=== PATIENT | female | born 1970 | race Two or more races ===

== ENCOUNTER 2020-03-30 08:57 | Emergency (ER) | payer OTHER ==
[~2020-03-30] VITALS: Ht 165.1 cm; Wt 93.0 kg
[2020-03-30] MEDS ORDERED: ZITHROMAX500 MG PO (11:39)
== END 2020-03-30 13:17 | disposition home or self-care (01) ==
LOC: ER 08:57
DX: B34.9 Viral infection, unspecified (principal); B96.0 Mycoplasma pneumoniae [M. pneumoniae] as the cause of diseases classified elsewhere; Z03.818 Encounter for observation for suspected exposure to other biological agents ruled out

== ENCOUNTER 2020-05-26 19:08 | Emergency (ER) | payer OTHER ==
[~2020-05-26] VITALS: Ht 162.6 cm; Wt 77.1 kg
[~2020-05-26 19:08] MED LIST: ZITHROMAX500 MG PO
== END 2020-05-26 20:58 | disposition home or self-care (01) ==
LOC: ER 19:08
DX: I87.2 Venous insufficiency (chronic) (peripheral) (principal)

== ENCOUNTER 2020-12-10 12:51 | Emergency (ER) | payer OTHER ==
[~2020-12-10] VITALS: Ht 162.6 cm; Wt 77.6 kg
== END 2020-12-10 15:44 | disposition home or self-care (01) ==
LOC: ER 12:51
DX: S33.9XXA Sprain of unspecified parts of lumbar spine and pelvis, initial encounter (principal); S13.4XXA Sprain of ligaments of cervical spine, initial encounter; X50.3XXA Overexertion from repetitive movements, initial encounter; Y93.89 Activity, other specified; Y92.090 Kitchen in other non-institutional residence as the place of occurrence of the external cause; Y99.8 Other external cause status

== ENCOUNTER 2021-09-25 09:41 | Emergency (ER) | payer OTHER ==
[~2021-09-25] VITALS: Ht 152.4 cm; Wt 77.6 kg
[2021-09-25] MEDS ORDERED: PROTONIX40 M1 PO (09:56)
== END 2021-09-25 13:41 | disposition home or self-care (01) ==
LOC: ER 09:41
DX: K80.20 Calculus of gallbladder without cholecystitis without obstruction (principal); R10.13 Epigastric pain

== ENCOUNTER 2022-04-20 08:10 | Emergency (ER) | payer OTHER ==
[~2022-04-20] VITALS: Ht 165.1 cm; Wt 78.5 kg
[~2022-04-20 08:10] MED LIST changes: +PROTONIX40 M1 PO
== END 2022-04-20 11:11 | disposition home or self-care (01) ==
LOC: ER 08:10
DX: R51.9 Headache, unspecified (principal); K29.70 Gastritis, unspecified, without bleeding; Z20.822 Contact with and (suspected) exposure to COVID-19

== ENCOUNTER 2022-10-08 08:32 | Emergency (ER) | payer OTHER ==
[~2022-10-08] VITALS: Ht 162.6 cm; Wt 76.2 kg
== END 2022-10-08 12:23 | disposition home or self-care (01) ==
LOC: ER 08:32
DX: K29.70 Gastritis, unspecified, without bleeding (principal)

== ENCOUNTER 2022-12-17 08:33 | Emergency (ER) | payer OTHER ==
[~2022-12-17] VITALS: Ht 162.6 cm; Wt 75.7 kg
[2022-12-17] MEDS ORDERED: TENORMIN25 MG (08:58)
[2022-12-17] MEDS ORDERED: PROTONIX40 MG PO (08:58)
[2022-12-17] MEDS ORDERED: IBU800 MG PO (11:36)
== END 2022-12-17 12:06 | disposition home or self-care (01) ==
LOC: ER 08:33
DX: G44.89 Other headache syndrome (principal)

== ENCOUNTER 2023-07-01 08:23 | Emergency (ER) | payer OTHER ==
[~2023-07-01] VITALS: Ht 162.6 cm; Wt 75.3 kg
[~2023-07-01 08:23] MED LIST changes: +IBU800 MG PO; +PROTONIX40 MG PO; +TENORMIN25 MG
[2023-07-01] MEDS ORDERED: PEPCID AC20 MG (08:46)
[2023-07-01 09:32] LABS: HEMATOCRIT 43.8 % (36.0-45.00); HEMOGLOBIN 14.3 g/dL (12.0-15.00); MEAN CELL VOLUME 87.8 fL (80.00-100.00); MEAN CORPUSCULAR HEMOGLOBIN 28.6 pg (27.00-32.0); MEAN CORPUSCULAR HGB CONC 32.6 g/dl (32.0-36.0); PLATELET COUNT 257 K/uL (150-450); RED BLOOD COUNT 4.99 M/uL (4.00-6.00); RED CELL DISTRIBUTION WIDTH 13.4 % (11.5-14.5)
[2023-07-01 09:52] LABS: CALCIUM 9.5 mg/dL (8.5-10.1); CREATININE SERUM 0.78 mg/dL (0.55-1.02); GFR 78.17; POTASSIUM 3.57 mEq/L (3.5-5.1)
== END 2023-07-01 10:49 | disposition home or self-care (01) ==
LOC: ER 08:23
PROVIDERS: Emergency Medicine
DX: K29.70 Gastritis, unspecified, without bleeding (principal)

== ENCOUNTER 2023-12-21 11:27 | Emergency (ER) | payer OTHER ==
[~2023-12-21] VITALS: Ht 162.6 cm; Wt 72.6 kg
[~2023-12-21 11:27] MED LIST changes: +PEPCID AC20 MG
[2023-12-21] MEDS ORDERED: KETOROLAC TROMETHAMINE 60 MG VIAL IM ONE (15:15)
[2023-12-21] MEDS ORDERED: CETIRIZINE HCL 5 MG/5 ML ML PO ONE (15:15)
[2023-12-21] MEDS ORDERED: GUAIFENESIN/DEXTROMETHORPHAN 100 MG/5 ML ML PO ONE (15:15)
[2023-12-21 15:53] LABS: HEMATOCRIT 42.4 % (36.0-45.00); MEAN CELL VOLUME 86.7 fL (80.00-100.00); MEAN CORPUSCULAR HEMOGLOBIN 28.7 pg (27.00-32.0); PLATELET COUNT 270 K/uL (150-450); RED BLOOD COUNT 4.89 M/uL (4.00-6.00)
[2023-12-21] MEDS ORDERED: ZYRTEC10 MG PO (17:29)
[2023-12-21] MEDS ORDERED: NASAL MIST126 ML NASAL (17:29)
[2023-12-21] MEDS ORDERED: TUSSIN DM SYRU118 ML PO (17:29)
== END 2023-12-21 17:57 | disposition home or self-care (01) ==
LOC: ER 11:27
PROVIDERS: Nurse Practitioner Family
DX: J00 Acute nasopharyngitis [common cold] (principal); Z20.822 Contact with and (suspected) exposure to COVID-19; I10 Essential (primary) hypertension

== ENCOUNTER 2024-04-05 08:11 | Emergency (ER) | payer OTHER ==
[~2024-04-05] VITALS: Ht 165.1 cm; Wt 76.2 kg
[~2024-04-05 08:11] MED LIST changes: +NASAL MIST126 ML NASAL; +TUSSIN DM SYRU118 ML PO; +ZYRTEC10 MG PO
[2024-04-05] MEDS ORDERED: HYDRODIURIL12.5 MG PO (08:22)
[2024-04-05] MEDS ORDERED: ACID REDUCER20 M1 PO (08:22)
[2024-04-05] MEDS ORDERED: METOCLOPRAMIDE HCL 5 MG/ML VIAL ONE (09:36)
[2024-04-05] MEDS ORDERED: HYOSCYAMINE SULFATE 0.125 MG TAB.SUBL ONE (09:36)
[2024-04-05] MEDS ORDERED: FAMOtidine 200mg/20ml VIAL ONE (09:39)
[2024-04-05] MEDS ORDERED: METOCLOPRAMIDE HCL 5 MG/ML VIAL IM ONE (09:45)
[2024-04-05] MEDS ORDERED: HYOSCYAMINE SULFATE 0.125 MG TAB.SUBL SL ONE (09:45)
[2024-04-05] MEDS ORDERED: SUCRALFATE 1 G TABLET PO ONE (09:45)
[2024-04-05] MEDS ORDERED: FAMOtidine 10 MG/ML (4ML VIAL) IV PUSH ONE (09:45)
[2024-04-05 10:53] LABS: ALBUMIN 3.8 gm/dL (3.4-5.0); BILIRUBIN TOTAL 0.36 mg/dL (0.3-1.2); CALCIUM 9.6 mg/dL (8.5-10.1); CREATININE SERUM 0.69 mg/dL (0.55-1.02); GFR 89.69; GLOBULINA 3.1 G/DL (2.4-3.5); POTASSIUM 4.58 mEq/L (3.5-5.1); TOTAL PROTEIN 6.9 gm/dL (6.4-8.2)
[2024-04-05 10:59] LABS: HEMATOCRIT 40.3 % (36.0-45.00); HEMOGLOBIN 13.5 g/dL (12.0-15.00); MEAN CELL VOLUME 85.8 fL (80.00-100.00); MEAN CORPUSCULAR HEMOGLOBIN 28.8 pg (27.00-32.0); MEAN CORPUSCULAR HGB CONC 33.6 g/dl (32.0-36.0); PLATELET COUNT 244 K/uL (150-450); RED CELL DISTRIBUTION WIDTH 14.7 % (11.5-14.5)
== END 2024-04-05 13:14 | disposition home or self-care (01) ==
LOC: ER 08:12
PROVIDERS: General Practice
DX: K29.70 Gastritis, unspecified, without bleeding (principal); I10 Essential (primary) hypertension

== ENCOUNTER 2025-02-22 06:39 | Emergency (ER) | payer OTHER ==
[~2025-02-22] VITALS: Ht 165.1 cm; Wt 74.8 kg
[~2025-02-22 06:39] MED LIST changes: +ACID REDUCER20 M1 PO; +HYDRODIURIL12.5 MG PO
[2025-02-22] MEDS ORDERED: HYDRODIURIL12.5 MG (06:52)
[2025-02-22] MEDS ORDERED: HYDROCODONE/CHLORPHEN P-STIREX 5 ML ML PO STA (08:44)
[2025-02-22 09:32] LABS: BASO % 0.8 % (0.1-1.2); EOS # 0.01 (0.04-0.54); EOS % 0.4 % (0.7-7.0); HEMATOCRIT 43.4 % (34.1-44.9); HEMOGLOBIN 14.3 g/dL (11.2-15.7); LYMPH # 0.77 (1.18-3.74); LYMPH % 29.6 % (19.3-53.1); MEAN CORPUSCULAR HEMOGLOBIN 27.9 pg (25.6-32.2); MONO # 0.41 (0.24-0.82); NEUT # 1.38 (1.56-6.13); PLATELET COUNT 239 K/uL (163-369); RED BLOOD COUNT 5.12 M/uL (3.93-5.22); RED CELL DISTRIBUTION WIDTH 13.2 % (11.6-14.4)
[2025-02-22 09:36] LABS: MONO % 15.8 % (4.7-12.5)
[2025-02-22 11:05] LABS: COVID-19 AG NEGATIVE (NEGATIVE)
[2025-02-22 11:20] LABS: INFLUENZA A AG NEGATIVE (NEGATIVE); INFLUENZA B AG POSITIVE (NEGATIVE)
== END 2025-02-22 11:43 | disposition home or self-care (01) ==
LOC: ER 06:46
DX: J06.9 Acute upper respiratory infection, unspecified (principal); Z20.822 Contact with and (suspected) exposure to COVID-19

== ENCOUNTER → 2025-08-09 | Emergency (ER) | payer OTHER ==
[~2025-08-09] VITALS: Ht 165.1 cm; Wt 76.2 kg
[~2025-08-09] MED LIST changes: +ACETAMINOPHEN 500 MG GEL..CAP PO ONE; +BENZONATATE 100 MG CAPSULE PO ONE; +GUAIFENESIN 200 MG/10 ML BLIST.PACK PO ONE; +HYDRODIURIL12.5 MG
[2025-08-09 09:23] VITALS: BP 144/80; O2SAT 100
[2025-08-09 11:10] LABS: BASO % 1.1 % (0.1-1.2); EOS # 0.27 (0.04-0.54); EOS % 7.1 % (0.7-7.0); LYMPH # 1.66 (1.18-3.74); LYMPH % 43.7 % (19.3-53.1); MEAN PLATELET VOLUME 10.90 fl (9.4-12.4); MONO # 0.24 (0.24-0.82); MONO % 6.3 % (4.7-12.5); NEUT # 1.59 (1.56-6.13); NEUT % 41.8 % (34.0-71.1); RED CELL DISTRIBUTION WIDTH 13.4 % (11.6-14.4)
[2025-08-09 11:57] LABS: COVID-19 AG NEGATIVE (NEGATIVE)
== END | disposition home or self-care (01) ==
LOC: ER 08:20
PROVIDERS: General Practice
DX: J06.9 Acute upper respiratory infection, unspecified (principal); Z20.822 Contact with and (suspected) exposure to COVID-19; I10 Essential (primary) hypertension